=== PATIENT | female | born 1990 | race Caucasian/White ===

== ENCOUNTER 2016-08-13 14:39 | Outpatient (CLI) | payer OTHER ==
[~2016-08-13 14:39] MED LIST: NORCO 5-325 TA1 EACH PO
== END 2016-08-13 16:40 | disposition home or self-care (01) ==
LOC: GENOP 14:39
DX: O21.2 Late vomiting of pregnancy (principal); R51 Headache; O99.89 Other specified diseases and conditions complicating pregnancy, childbirth and the puerperium; Z3A.33 33 weeks gestation of pregnancy
CPT/HCPCS: 81001

== ENCOUNTER 2016-09-01 17:06 | Outpatient (CLI) | payer OTHER | END 2016-09-01 19:32 | disposition home or self-care (01) | LOC: ER1 17:06 | DX: O47.03 False labor before 37 completed weeks of gestation, third trimester (principal); Z3A.33 33 weeks gestation of pregnancy | CPT/HCPCS: G0463 ==

== ENCOUNTER 2016-09-05 12:57 | Observation (INO) | payer OTHER ==
[~2016-09-05] VITALS: Ht 167.6 cm; Wt 101.2 kg
[2016-09-05 13:38] LABS: HEMOGLOBIN 10.4 gm/dl (12.3-15.3); RED BLOOD COUNT 3.8 M/UL (4.00-5.10); WHITE BLOOD COUNT 9.1 K/UL (4.5-11.0)
[2016-09-05 14:00] LABS: BUN/CREATININE RATIO 6 (0-10)
== END 2016-09-05 16:43 | disposition home or self-care (01) ==
LOC: GENOP 12:57 → OB 13:09
PROVIDERS: Obstetrics & Gynecology; ADMIT Obstetrics & Gynecology
DX: O23.43 Unspecified infection of urinary tract in pregnancy, third trimester (principal); O98.313 Other infections with a predominantly sexual mode of transmission complicating pregnancy, third trimester; O99.113 Other diseases of the blood and blood-forming organs and certain disorders involving the immune mechanism complicating pregnancy, third trimester; D69.6 Thrombocytopenia, unspecified; Z3A.37 37 weeks gestation of pregnancy; Z79.899 Other long term (current) drug therapy
CPT/HCPCS: 36415; 59025; 71020; 80048; 81001; 83605; 85025; 87086; 96372; G0378; G0463; J0696